=== PATIENT | male | born 1995 ===

== ENCOUNTER 2019-10-17 18:54 | Outpatient (REF) | payer OTHER, SELFPAY ==
[2019-10-21 03:59] LABS: SARS-CoV-2 RNA Undetected (Undetected); SARS-CoV-2 Specimen Source Nasal
== END 2019-10-17 19:14 ==
LOC: NCHCN 18:54
PROVIDERS: Visit Provider Internal Medicine
DX: Z20.828 Contact with and (suspected) exposure to other viral communicable diseases (principal)
CPT/HCPCS: U0003